=== PATIENT | female | born 1940 | race African-American/Black ===

== ENCOUNTER 2016-09-02 11:31 | Inpatient (IN) ==
[2016-09-02] MEDS ORDERED: DOCUSATE SODIUM 100 MG CAPSULE PO PRN (14:00)
[2016-09-02] MEDS ORDERED: ONDANSETRON 4 MG/2 ML VIAL IV PRN (14:00)
[2016-09-02] MEDS ORDERED: MORPHINE 2 MG/1 ML SYRINGE IV PRN (14:00)
[2016-09-02] MEDS ORDERED: ZALEPLON 5 MG CAPSULE PO PRN (14:00)
[2016-09-02] MEDS ORDERED: LACTULOSE 20 GM/30 ML UDCUP PO PRN (14:00)
[2016-09-02] MEDS ORDERED: ACETAMINOPHEN 325 MG TABLET PO PRN (14:00)
[2016-09-02 14:18] LABS: Basophils % 0.1 % (0.0-0.8); Hematocrit 36.7 VOL% (35.7-47.0); Hemoglobin 12.1 GM/DL (12.0-16.0); Immature Granulocytes % 0.4 %; Immature Granulocytes Absolute 0.06 #; Lymphocytes # 1.1 10*3/uL (1.4-4.0); Lymphocytes % 7.6 % (21.3-54.2); Mean Corpuscular Hemoglobin 29 PG (27-34); Mean Corpuscular Volume 88.4 FL (87-102); Mean Platelet Volume 10.6 FL (9.6-12.0); Monocytes # 0.9 10*3/uL (0.11-0.8); Monocytes % 5.9 % (1.7-12.7); Neutrophils # 12.8 10*3/uL (1.4-7.4); Platelet Count 149 T/CUMM (130-400); Red Blood Count 4.15 MC/CUMM (3.8-5.5); White Blood Count 14.9 T/CUMM (4-12)
[2016-09-02 14:42] LABS: Albumin 3.1 G/DL (3.4-5.0); Bilirubin,Total 0.9 MG/DL (0.2-1.0); Calcium 9.2 MG/DL (8.5-10.1); Magnesium 2.2 MG/DL (1.8-2.4); Osmolality,Calculated 281.3 MOS/KG (273-304); Potassium 3.6 MMOL/L (3.5-5.1); Risk Ratio 1.79; Total Protein 7.1 G/DL (6.4-8.3); VLDL CHOLESTEROL 14.8 MG/DL
[2016-09-02 15:41] LABS: Troponin I Only 0.397 NG/ML (0.00-0.045)
--- NOTE | 2016-09-02 16:06 | Hospitalist History & Physical ---
Assessment and Plan - Time spent with patient Time spent with patient: Greater than 30 minutes (due to assessment, plan and doc) (1) Confusion Status: Acute Assessment and plan: she will not speak to me, so therefore it is difficult to obtain a true evaluation of her mental status. I have ordered a UA to see if this could be a contributing factor to her confusion and leukocytosis. Current Visit: Yes (2) Elevated troponin Status: Acute Assessment and plan: Cardiology is seeing Current Visit: Yes (3) Hypertension Status: Acute Assessment and plan: continue home meds Current Visit: Yes (4) Leukocytosis Status: Acute Current Visit: Yes History of Present Illness Chief complaint: sent from [facility] for elevated troponin, SOB, refractory chf History of present illness: Ms. French is a 76 year old female who was sent to our facility from [facility] for CHF refractory to aggressive diuresis. She was also noted to have an elevated troponin with no EKG change. She was also noted to have some confusion per the physician at [facility]. CT negative on 09/01. ROS and HPI is very limited due to her being nonconversant. She is keeping her eyes closed and will not speak. Her Medications include singulair, hyzaar, norvasc, and tramadol. This morning at 0906, her troponin was noted to be 0.436. Upon arrival to telemetry today, she does give the nurses a history of a lumpectomy, but denies hx of breast ca. Her lungs are clear, and bowel sounds are normal. She does have some minimal edema to her bilateral lower extremities. Labs from our facility show : WBC 14.9, BNP 248, troponin 0.397. Creatinine is 1.10 with GFR 74. We will have Cardiology evaluate her elevated troponin and treat accordingly. She has recently relocated from [place] and does not have a PCP or other contacts. Further plan and addendum to follow by Dr. Leonor Pena. Home Medications Medication Instructions Recorded Confirmed Type Losartan/Hydrochlorothiazide 1 tablet PO DAILY 09/02/16 09/02/16 History [Hyzaar 100-25 Tablet] Montelukast Tab [Singulair Tab] 10 mg PO BEDTIME 09/02/16 09/02/16 History Tramadol HCl [Tramadol Tab] 50 mg PO BID PRN 09/02/16 09/02/16 History amLODIPine [Norvasc] 10 mg PO DAILY 09/02/16 09/02/16 History Allergies Allergy/AdvReac Type Severity Reaction Status Date / Time No Known Allergies Allergy Verified 09/02/16 14:09 Medical,Surgical,& Family Hx - Medical History Cardio: History of: Hypertension Endocrine: History of: Dyslipidemia - Surgical History Reproductive Surgeries: Surgical HX of;: Breast Surgery (tumor removed) - Social History Smoking Status: Current every day smoker Frequency of Alcohol Use: None Type of Drug Use: None Marital Status: Unknown Lives With:: Alone Functional capacity: independent ambulation ROS unobtainable: other (pt will not speak. ) Exam - Constitutional Vitals: Period Temp Pulse Resp BP Sys/Mcduffie Pulse Ox Last 24 Hr 97.9 F 68 18 149/75 96 General appearance: no acute distress, morbidly obese - Head Head exam: Present: normal inspection, normocephalic - Eye Eye exam: Present: EOMI. Absent: scleral icterus Pupils: Present: ISHAAN, normal accommodation - ENT ENT exam: Present: normal exam, normal oropharynx - Neck Neck exam: Present: normal inspection. Absent: lymphadenopathy - Respiratory Respiratory exam: Present: clear to auscultation bilaterally. Absent: accessory muscle use - Cardiovascular Cardiovascular exam: Present: regular rate and rhythm. Absent: carotid bruit - GI/Abdominal GI/Abdominal exam: Present: normal bowel sounds, soft. Absent: tenderness - Extremities Exam Extremities exam: Present: normal inspection, edema (minimal) - Back Exam Back exam: Present: normal inspection. Absent: muscle spasm - Neurological Exam Neurological exam: Present: alert, other (she will grunt to me at times, but acts as though she is asleep. She has conversed with other staff. ) - Skin Skin exam: Present: normal color, warm, dry, intact Results - Labs CBC & BMP: 09/02/16 14:13 09/02/16 14:13 Lab Results: I have reviewed the past 24 hour labs
[2016-09-02 16:31] LABS: Apearance,Urine CLEAR (Clear); Bacteria,Urine Occasional /HPF (Few); Bilirubin,Urine Negative (Negative); Blood, Urine Small mg/dL (Negative); Glucose,Urine (UA) Negative (Negative); Ketones,Urine Negative (Negative); Mucus,Urine Occasional /LPF (Occasional); Nitrite,Urine Negative (Negative); Protein,Urine Negative; RBC,Urine 1 /HPF (0-4); Squamous Epithelial Cell,Urine Occasional /HPF (0-10); Urine Color Yellow (Yellow); Urine Specific Gravity 1.012 (1.001-1.035); Urine Urobilinogen < 2.0 EU/DL (0.2-1.0); WBC,Urine 1 /HPF (0-6)
--- NOTE | 2016-09-02 17:23 | EKG Report ---
Stationary ECG Study [facility] Test Date: 09/02/2016 5:22:53 PM Pat Name: LOUIS LEE Department: Room: 273 Gender: F Specialty Cook: JOSE : 1940 Requested by: Juan M La Order Number: [id number] Reading MD: JUAN M LA Intervals [place] Rate: 72 P: 66 [place]: 169 QRS: 3 QRSD: 82 T: 27 QT: 393 QTc: 418 Interpretive Statements SINUS RHYTHM NONSPECIFIC T-WAVE ABNORMALITY Electronically Signed On 09-04-16 20:07:37 DETASSELER by JUAN M LA [email or web address]
--- NOTE | 2016-09-02 19:53 | Cardiology Consult Note ---
Indra Vale Lauren, RN, am scribing for, and in the presence of, Vijay La MD 19: 49. Assessment and Plan - Time spent with patient Time spent with patient: Less than 30 minutes (1) Elevated troponin Status: Acute Assessment and plan: 76 y/o BF c hx of HTN. Transferred to our facility from [facility] with confusion, leukocytosis, and elevated troponin. Prior CP. ECG w/o significant ischemic changes. -Elev trop. Get echo. Check ESR, CRP. If elevated, will need rheum workup. Endocarditis will also need to be ruled out. ischemia/acs less likely, will also need eval for this -HTN. Well controlled. Resume amlodipine, hctz/arb -Keep on telemetry Current Visit: Yes (2) Leukocytosis Status: Acute Current Visit: Yes (3) Hypertension Status: Acute Current Visit: Yes (4) Confusion Status: Acute Current Visit: Yes History of Present Illness - Data of Consult Patient: new to practice Consult date: 09/02/16 Requesting Physician: Yamel Nevarez - Consult Narrative Reason for consult: elevated troponin History of present illness: Ms. 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 She is originally from [place], [place] and has a primary care provider in her hometown. She is here visiting her aunt. We have no prior records to review. She is a poor historian. She did tell me she has a history of hypertension. She denies a history of diabetes, hyperlipidemia, obstructive sleep apnea, renal disease. She has risk factors significant for: hypertension, obesity, sedentary lifestyle, tobacco use. Her surgical history includes a right breast lumpectomy. Family history includes diabetes, hypertension, and cancer. According to records from [facility], she smokes daily. She was transferred to our facility with confusion, elevated white blood cell count, and elevated troponin. She tells me she has had a terrible headache for the last 2-3 days. She denies chest pain, shortness of breath, fever, chills, palpitations, dizziness, lightheadedness, syncope, diaphoresis. When questioned here, she denied nausea and vomiting but according to records from [facility], she presented with "vomiting all day." She denies constipation, diarrhea, melena, hematochezia, dysphagia, heartburn. She does report urinary frequency but denies odor, dysuria, or hematuria. At [facility], her troponin was 0.436. WBC on arrival was 14.9, creatinine 1.1, BNP 248. CXR at the outlying facility was unremarkable. CT brain was negative. She is a limited historian, quite stable somnolent. C/o bl ankle cramps. CC: Leonor Pena MD - Home Medications and Allergies Home Medications: Home Medications Medication Instructions Recorded Confirmed Type Losartan/Hydrochlorothiazide 1 tablet PO DAILY 09/02/16 09/02/16 History [Hyzaar 100-25 Tablet] Montelukast Tab [Singulair Tab] 10 mg PO BEDTIME 09/02/16 09/02/16 History Tramadol HCl [Tramadol Tab] 50 mg PO BID PRN 09/02/16 09/02/16 History amLODIPine [Norvasc] 10 mg PO DAILY 09/02/16 09/02/16 History Allergies/Adverse Reactions: Allergies Allergy/AdvReac Type Severity Reaction Status Date / Time No Known Allergies Allergy Verified 09/02/16 14:09 12 point system: reviewed and no additional remarkable complaints except as stated - Constitutional Constitutional: Present: daytime sleepiness, headache(s), lethargy, stops breathing during sleep. Absent: anorexia, chills, excessive sweating, fatigue, fever(s), frequent falls, increased appetite, malaise, night sweats, weakness, weight gain, weight loss - EENT Eyes: Absent: blurry vision, diplopia, loss of vision Ears: Absent: decreased hearing, ear discharge, ear pain Nose, mouth and throat: Present: headache(s). Absent: dysphagia, epistaxis, hoarseness, lip swelling, nasal congestion, neck mass, neck pain, sinus pressure , sore throat, throat swelling, tongue swelling, vertigo - Cardiovascular Cardiovascular: Present: edema (occasional pedal edema). Absent: chest pain at rest, chest pain with activity, claudication, diaphoresis, dyspnea, dyspnea on exertion, radiating jaw, neck or arm pain, lightheadedness, orthopnea, palpitations, PND - Respiratory Respiratory: Absent: cough, dyspnea, hemoptysis, dyspnea on exertion, wheezing, snoring, pain on inspiration - Gastrointestinal Gastrointestinal: Absent: abdominal pain, bloating, constipation, diarrhea, dysphagia, heartburn, hematemesis, hematochezia, loose stools, melena, nausea, vomiting - Genitourinary Genitourinary: Present: urinary frequency. Absent: difficulty urinating, dysuria, flank pain, hematuria, urinary hesitancy, urinary incontinence - Musculoskeletal Musculoskeletal: Absent: arthralgias, back pain, joint swelling, limited range of motion, muscle cramps, muscle weakness, myalgias - Neurological Neurological: Present: confusion, headache(s). Absent: abnormal gait, abnormal speech, behavioral changes, convulsions, disequilibrium, dizziness, focal weakness, frequent falls, memory loss, numbness, paresthesias, radicular pain, syncope, tremor(s) - Psychiatric Psychiatric: Present: confusion. Absent: anxiety, depression, memory loss, panic attacks - Endocrine Endocrine: Absent: cold intolerance, fatigue, heat intolerance, polydipsia, polyphagia - Hematologic/Lymphatic Hematologic/Lymphatic: Absent: easy bleeding, easy bruising, lymphadenopathy Medical,Surgical,& Family Hx - Medical History Cardio: History of: Hypertension Endocrine: History of: Dyslipidemia - Surgical History Reproductive Surgeries: Surgical HX of;: Breast Surgery (tumor removed) - Social History Smoking Status: Current every day smoker Frequency of Alcohol Use: None Type of Drug Use: None Physical Examination Vital Signs Temp Pulse Resp BP Pulse Ox 97.9 F 68 18 149/75 96 09/02/16 13:57 09/02/16 13:57 09/02/16 13:57 09/02/16 13:57 09/02/16 13:57 General: Present: No Apparent Distress HEENT: Present: Normocephaly, Mucus Membranes Moist Neck: Present: Supple Neck, Midline Trachea, No Masses, No Bruit Cardiac: Present: Reg Rate and Rhythm, No Murmur Lungs: Present: Normal Exam, Decreased Breath Sounds, No Wheeze, Rales, Rhonchi Neuro: Absent: Resting Tremor, Essential Tremor Abdomen: Present: Soft, Active Bowel Sounds, Non-Tender Skin: Present: Clear. Absent: Rash Musculoskeletal: Present: No Fluid Collection, No Pain, Normal Range of Motion Extremities: Present: No Clubbing, No Cyanosis, No Edema, Normal Upper Extr. Pulses, Normal Lower Extr. Pulses Result/EKG - Labs CBC & BMP: 09/02/16 14:13 09/02/16 14:13 Lab Results: I have reviewed the past 24 hour labs Labs: Laboratory Results - last 24 hr 09/02/16 09/02/16 09/02/16 14:13 14:13 14:13 WBC 14.9 H RBC 4.15 Hgb 12.1 Hct 36.7 MCV 88.4 MCH 29 MCHC 33.0 RDW 15.0 Plt Count 149 MPV 10.6 Neut % (Auto) 86.0 H Lymph % (Auto) 7.6 L [place] % (Auto) 5.9 Eos % (Auto) 0.0 Baso % (Auto) 0.1 Neut # (Auto) 12.8 H Lymph # (Auto) 1.1 L [place] # (Auto) 0.9 H Eos # (Auto) 0.0 Baso # (Auto) 0.0 Immature Gran % 0.4 Nucleated RBC % 0.0 Immature Gran # 0.06 Nucleated RBCs # 0.00 Sodium 141 Potassium 3.6 Chloride 104 Carbon Dioxide 27 Anion Gap 13.6 BUN 16 Creatinine 1.10 H GFR Calculation 74 BUN/Creatinine Ratio 14.00 Glucose 106 Calculated Osmolality 281.3 Calcium 9.2 Magnesium 2.2 Total Bilirubin 0.90 AST 34 ALT 42 Alkaline Phosphatase 104 B-Natriuretic Peptide 248 H Total Protein 7.1 Albumin 3.1 L Globulin 4.0 H Albumin/Globulin Ratio 0.7 L Triglycerides 74 Cholesterol 138 LDL Cholesterol 59.0 VLDL Cholesterol 14.8 HDL Cholesterol 77 H Heart Disease Risk Ratio 1.79 - EKG EKG results: interpreted by me, sinus rhythm EKG shows: tachycardia I, Vijay La MD, personally performed the services described in this documentation, ascribed by Natalia Burrell RN in my presence, and it is both accurate and complete [id number] .
[2016-09-02] MEDS: METOPROLOL TARTRATE 25 MG TABLET PO SCH (21:13)
[2016-09-02 22:33] LABS: Troponin I Only 0.518 NG/ML (0.00-0.045)
[2016-09-03 05:41] LABS: Troponin I Only 0.729 NG/ML (0.00-0.045)
--- NOTE | 2016-09-03 07:35 | EKG Report ---
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
[2016-09-03] MEDS: LOSARTAN/HCTZ 50-12.5 MG TABLET PO SCH (09:32)
[2016-09-03] MEDS: ASPIRIN EC 81 MG TABLET PO SCH (09:33)
[2016-09-03] MEDS: PANTOPRAZOLE 40 MG TABLET PO SCH (09:33)
[2016-09-03] MEDS: amLODIPine 5 MG TABLET PO SCH (09:33)
[2016-09-03] MEDS: METOPROLOL TARTRATE 25 MG TABLET PO SCH ×2 (09:33→20:47)
[2016-09-03] MEDS ORDERED: PROMETHAZINE 25 MG/1 ML VIAL IM ONE (10:33)
[2016-09-03] MEDS ORDERED: KETOROLAC 15 MG/1 ML VIAL IV ONE (10:33)
--- NOTE | 2016-09-03 10:38 | Hospitalist Progress Note ---
Assessment and Plan (1) Leukocytosis Status: Acute Assessment and plan: There was no repeat CBC today and therefore our repeated in the a.m. At this time there is no obvious signs of any type of infection. Current Visit: Yes (2) Elevated troponin Status: Acute Current Visit: Yes (3) Hypertension Status: Chronic Assessment and plan: Her preadmission medications of been restarted as argon tester on case will continue to monitor and if any adjustments will be needed will defer this to cardiology. Current Visit: Yes (4) Confusion Status: Resolved Assessment and plan: She does seem more alert today she had a breakfast she was up using the bedpan and now answering questions better than yesterday. We'll continue to monitor her nonspecific anti-inflammatory Morphis did come elevated. We'll go ahead and check an AMA along with rheumatoid panel and lupus panel if she could have some type of underlying rheumatological disease causing her symptoms. I'll also go ahead and start oral 20 mg of prednisone daily. Current Visit: Yes (5) Headache Status: Acute Assessment and plan: Her headache is mostly frontal she has no focal neurological deficits and a CT done yesterday was negative. Again, she may have some type of underlying vasculitis given she did have an elevated sedimentation rate and CRP. I will go ahead and start her on low-dose steroids as I have placed orders for a rheumatologic workup which consisting of ruling out lupus and possible rheumatoid arthritis. Current Visit: Yes Qualifiers: Headache type: unspecified Hospitalist: Subjective Interval history: Mrs. French is a 76-year-old -[place] female who is seriously from [place] was here in [place] visiting her sister where she gets sick and was initially transferred to [facility] in [facility]. There she presented with confusion elevated white blood cell count elevated troponin. She was transferred here for further evaluation and cardiology consult. She is a very poor historian. This morning she appears to be feeling better than she did yesterday however she still complains of this frontal headache. Cardiology did see her and was concerned about the possibility of some type of underlying rheumatological disease. Her sedimentation rate did return high at 100 with elevated CRP. She is much more alert today and states that she did have some chest pain on yesterday. Exam - Constitutional Vitals: Period Temp Pulse Resp BP Sys/Mcduffie Pulse Ox Last 24 Hr 97.1 F-99.6 F 58-74 18-20 126-165/61-75 92-99 General appearance: morbidly obese - Head Head exam: Present: normocephalic, atraumatic - Eye Eye exam: Present: EOMI Pupils: Present: ISHAAN - Neck Neck exam: Present: normal inspection - Respiratory Respiratory exam: Present: clear to auscultation bilaterally - Cardiovascular Cardiovascular exam: Present: regular rate and rhythm - GI/Abdominal GI/Abdominal exam: Present: normal bowel sounds, soft - Extremities Exam Extremities exam: Present: full ROM - Neurological Exam Neurological exam: Present: alert, oriented X3, normal gait, CN II-XII intact - Psychiatric Psychiatric exam: Present: flat affect - Skin Skin exam: Present: warm, intact Results - Labs CBC & BMP: 09/02/16 14:13 09/02/16 14:13
[2016-09-03] MEDS: predniSONE 20 MG TABLET PO SCH (13:03)
[2016-09-03] MEDS: SODIUM CHLORIDE 0.45% 1,000 ML IV SCH ×2 (14:19→23:15)
--- NOTE | 2016-09-03 17:49 | ECHO Report ---
Guerda French Exam Date: 09/03/2016 09:49 Referring Physician: Technologist: Ramona Lira RDCS Age: 76 Ht (in): Wt (lb): Gender: F Exam Location: [facility] Echo Indications: Essential (primary) hypertension, Elevated troponin, Leukocytosis, Confusion, Headaches, Nicotine dependence, cigarettes, uncomplicated, Edema, unspecified BP: / HR: Rhythm: Sinus Technical Quality: IMPRESSIONS Normal left ventricular cavity size. Mild concentric hypertrophy. Normal systolic function. Left ventricular ejection fraction is estimated at 60 %. Grade 1 diastolic dysfunction. Mildly dilated left atrium. No significant valvular abnormalities. MEASUREMENTS (Male / Female) Normal Values 2D ECHO LV Diastolic Diameter PLAX 4.9 cm 4.2 - 5.9 / 3.9 - 5.3 cm LV Systolic Diameter PLAX 2.6 cm LV Fractional Shortening PLAX 46.6 % IVS Diastolic Thickness 1.0 cm 0.6 - 1.0 / 0.6 - 0.9 cm LVPW Diastolic Thickness 1.1 cm 0.6 - 1.0 / 0.6 - 0.9 cm RV Internal Dim ED PLAX 2.3 cm Aortic Root Diameter 2.8 cm LA Systolic Diameter LX 4.1 cm 3.0 - 4.0 / 2.7 - 3.8 cm FINDINGS Left Ventricle Normal left ventricular cavity size. Mild concentric hypertrophy. Normal systolic function. Left ventricular ejection fraction is estimated at 60 %. Grade 1 diastolic dysfunction. Right Ventricle The right ventricle is normal in size and function. Right Atrium The right atrium is normal in size. Left Atrium Mildly dilated left atrium. Mitral Valve Morphologically normal mitral valve without significant stenosis or prolapse. There is no mitral regurgitation. Aortic Valve Morphologically normal aortic valve without significant sclerosis or stenosis. There is no aortic regurgitation. Tricuspid Valve Morphologically normal tricuspid valve without significant stenosis or regurgitation. Pulmonary artery systolic pressure cannot be estimated, due to lack of signal. Pulmonic Valve Morphologically normal pulmonic valve without significant stenosis. There is no pulmonic regurgitation. Pericardium Trace pericardial effusion. Aorta Normal ascending aorta dimension. Vijay La (Electronically Signed) Final Date: 03 September 2016 17:48
--- NOTE | 2016-09-03 17:57 | Cardiology Progress Note ---
Abhinav Vale Rachel, RN, am scribing for, and in the presence of, Vijay La MD 17:49. Assessment and Plan (1) Elevated troponin Status: Acute Assessment and plan: 76 y/o BF c hx of HTN. Transferred to our facility from [facility] with confusion, leukocytosis, and elevated troponin. Prior CP. ECG w/o significant ischemic changes. TTE: normal systolic function. Gr 1 diast dysfx, no PHTN. Trace peric eff. -Elev trop. This seems to be some myocarditic involvement due to a generalized inflammatory process, myositis. This did not cause significant cardiomyopathy. She seems to have some underlying mild hypertensive heart disease. No ACS. -BP, HR well controlled. -Rheum workup in progress -She is on IV fluids. So far, no evidence of significant rhabdomyolysis. She may tolerate IV fluids poorly, due to underlying diastolic dysfunction. Monitor carefully for volume overload/pulm congestion -No evidence of arrhythmia or hemodynamic instability. She maybe moved off telemetry. Current Visit: Yes (2) Leukocytosis Status: Acute Current Visit: Yes (3) Hypertension Status: Chronic Current Visit: Yes (4) Confusion Status: Resolved Current Visit: Yes Cardiology - PN: Subj Interval history: Mrs. French is lying in bed in no acute distress. She is currently not requiring any oxygen. She tells me that she feels much better today. She denies headache, chest pain, shortness of breath and palpitations. She tells me that she has been up out of bed walking around her room and has not experienced shortness of breath or chest pain. Her troponin continues to be high at 0.729 and 0660 today. Her rheumatoid factor was noted to be high at 5460, ESR high at 100 and CRP high at 12.8. Creatinine is slightly elevated at 1.1. EKG today does not reveal any acute findings. She is more awake and is responding adequately. Exam (Progress Note) - Constitutional Vitals: Period Temp Pulse Resp BP Sys/Mcduffie Pulse Ox Last 24 Hr 97.1 F-99.6 F 57-74 18-20 126-165/61-74 92-99 General appearance: no acute distress, morbidly obese - Head Head exam: Present: normal inspection, normocephalic, atraumatic - Respiratory Respiratory exam: Present: decreased breath sounds. Absent: accessory muscle use, rales, rhonchi, stridor, wheezes - Cardiovascular Cardiovascular exam: Present: regular rate and rhythm. Absent: bradycardia, carotid bruit, gallop, rubs, systolic murmur, tachycardia - GI/Abdominal GI/Abdominal exam: Present: normal bowel sounds, soft. Absent: mass, tenderness - Extremities Exam Extremities exam: Present: normal inspection, normal capillary refill. Absent: calf tenderness, edema - Neurological Exam Neurological exam: Present: alert, oriented X3 - Psychiatric Psychiatric exam: Present: normal affect, normal mood. Absent: agitated, anxious, depressed - Skin Skin exam: Present: normal color, warm, dry Result/EKG - Labs CBC & BMP: 09/02/16 14:13 09/02/16 14:13 Lab Results: I have reviewed the past 24 hour labs Labs: Laboratory Results - last 24 hr 09/02/16 09/02/16 09/02/16 14:13 14:13 14:13 ESR Westergren Sodium 141 Potassium 3.6 Chloride 104 Carbon Dioxide 27 Anion Gap 13.6 BUN 16 Creatinine 1.10 H GFR Calculation 74 BUN/Creatinine Ratio 14.00 Glucose 106 Calculated Osmolality 281.3 Calcium 9.2 Magnesium 2.2 Total Bilirubin 0.90 AST 34 ALT 42 Alkaline Phosphatase 104 Total Creatine Kinase 576 H CK-MB (CK-2) 4.9 H Troponin I 0.397 H C-Reactive Protein B-Natriuretic Peptide 248 H Total Protein 7.1 Albumin 3.1 L Globulin 4.0 H Albumin/Globulin Ratio 0.7 L Triglycerides 74 Cholesterol 138 LDL Cholesterol 59.0 VLDL Cholesterol 14.8 HDL Cholesterol 77 H Heart Disease Risk Ratio 1.79 Urine Color Urine Appearance Urine pH Ur Specific [place] Urine Protein Urine Glucose (UA) Urine Ketones Urine Blood Urine Nitrate Urine Bilirubin Urine Urobilinogen Urine Leukocytes Urine RBC Urine WBC Ur Squamous Epith Cells Urine Bacteria Urine Mucus Ur Culture Indicated? Rheumatoid Factor 09/02/16 09/02/16 09/03/16 16:20 21:32 04:11 ESR Westergren Sodium Potassium Chloride Carbon Dioxide Anion Gap BUN Creatinine GFR Calculation BUN/Creatinine Ratio Glucose Calculated Osmolality Calcium Magnesium Total Bilirubin AST ALT Alkaline Phosphatase Total Creatine Kinase 867 H D 1267 H D CK-MB (CK-2) 3.7 H 2.9 Troponin I 0.518 H D 0.729 H D C-Reactive Protein B-Natriuretic Peptide Total Protein Albumin Globulin Albumin/Globulin Ratio Triglycerides Cholesterol LDL Cholesterol VLDL Cholesterol HDL Cholesterol Heart Disease Risk Ratio Urine Color Yellow Urine Appearance Clear Urine pH 7.0 Ur Specific [place] 1.012 Urine Protein Negative Urine Glucose (UA) Negative Urine Ketones Negative Urine Blood Small Urine Nitrate Negative Urine Bilirubin Negative Urine Urobilinogen < 2.0 H Urine Leukocytes Negative Urine RBC 1 Urine WBC 1 Ur Squamous Epith Cells Occasional Urine Bacteria Occasional Urine Mucus Occasional Ur Culture Indicated? Not indicated Rheumatoid Factor 09/03/16 09/03/16 09/03/16 04:11 04:11 07:53 ESR Westergren 100 H Sodium Potassium Chloride Carbon Dioxide Anion Gap BUN Creatinine GFR Calculation BUN/Creatinine Ratio Glucose Calculated Osmolality Calcium Magnesium Total Bilirubin AST ALT Alkaline Phosphatase Total Creatine Kinase CK-MB (CK-2) Troponin I C-Reactive Protein 12.80 H 11.90 H B-Natriuretic Peptide Total Protein Albumin Globulin Albumin/Globulin Ratio Triglycerides Cholesterol LDL Cholesterol VLDL Cholesterol HDL Cholesterol Heart Disease Risk Ratio Urine Color Urine Appearance Urine pH Ur Specific [place] Urine Protein Urine Glucose (UA) Urine Ketones Urine Blood Urine Nitrate Urine Bilirubin Urine Urobilinogen Urine Leukocytes Urine RBC Urine WBC Ur Squamous Epith Cells Urine Bacteria Urine Mucus Ur Culture Indicated? Rheumatoid Factor 09/03/16 09/03/16 09:24 11:00 ESR Westergren Sodium Potassium Chloride Carbon Dioxide Anion Gap BUN Creatinine GFR Calculation BUN/Creatinine Ratio Glucose Calculated Osmolality Calcium Magnesium Total Bilirubin AST ALT Alkaline Phosphatase Total Creatine Kinase 1575 H D CK-MB (CK-2) 2.0 Troponin I 0.660 H C-Reactive Protein B-Natriuretic Peptide Total Protein Albumin Globulin Albumin/Globulin Ratio Triglycerides Cholesterol LDL Cholesterol VLDL Cholesterol HDL Cholesterol Heart Disease Risk Ratio Urine Color Urine Appearance Urine pH Ur Specific [place] Urine Protein Urine Glucose (UA) Urine Ketones Urine Blood Urine Nitrate Urine Bilirubin Urine Urobilinogen Urine Leukocytes Urine RBC Urine WBC Ur Squamous Epith Cells Urine Bacteria Urine Mucus Ur Culture Indicated? Rheumatoid Factor 5460 H - EKG EKG results: interpreted by me, sinus rhythm I, Vijay La MD, personally performed the services described in this documentation, ascribed by Iraida La RN in my presence, and it is both accurate and complete [id number] .
[2016-09-04] MEDS: PANTOPRAZOLE 40 MG TABLET PO SCH (08:48)
[2016-09-04] MEDS: predniSONE 20 MG TABLET PO SCH (08:48)
[2016-09-04] MEDS: amLODIPine 5 MG TABLET PO SCH (08:48)
[2016-09-04] MEDS: METOPROLOL TARTRATE 25 MG TABLET PO SCH (08:48)
[2016-09-04] MEDS: LOSARTAN/HCTZ 50-12.5 MG TABLET PO SCH (08:49)
[2016-09-04] MEDS: ASPIRIN EC 81 MG TABLET PO SCH (08:49)
[2016-09-04] MEDS: SODIUM CHLORIDE 0.45% 1,000 ML IV SCH (09:51)
--- NOTE | 2016-09-04 10:22 | Hospitalist Progress Note ---
Assessment and Plan (1) Leukocytosis Status: Acute Assessment and plan: There was no repeat CBC today and therefore our repeated in the a.m. At this time there is no obvious signs of any type of infection. Current Visit: Yes (2) Elevated troponin Status: Acute Assessment and plan: 09/04/16: She has been seen by cardiology her troponins trending now is increasing. She has been lying in bed a lot encouraged her to get around and sit up she. She is on normal saline repeat CK in the a.m. monitor for rhabdomyolysis. Current Visit: Yes (3) Hypertension Status: Chronic Assessment and plan: Her preadmission medications of been restarted as immunologist on case will continue to monitor and if any adjustments will be needed will defer this to cardiology. Current Visit: Yes (4) Confusion Status: Resolved Assessment and plan: She does seem more alert today she had a breakfast she was up using the bedpan and now answering questions better than yesterday. We'll continue to monitor her nonspecific anti-inflammatory Morphis did come elevated. We'll go ahead and check an AMA along with rheumatoid panel and lupus panel if she could have some type of underlying rheumatological disease causing her symptoms. I'll also go ahead and start oral 20 mg of prednisone daily. 09/04/16: Patient appears to be at her baseline she does answer questions appropriately again, I concerned that she could have some component of vasculitis giving her elevation in her inflammatory markers. She denies any joint aches or pain or swelling. She has never been diagnosed with any type of logical disorder. Current Visit: Yes (5) Headache Status: Resolved Assessment and plan: Her headache is mostly frontal she has no focal neurological deficits and a CT done yesterday was negative. Again, she may have some type of underlying vasculitis given she did have an elevated sedimentation rate and CRP. I will go ahead and start her on low-dose steroids as I have placed orders for a rheumatologic workup which consisting of ruling out lupus and possible rheumatoid arthritis. Current Visit: Yes Qualifiers: Headache type: unspecified Hospitalist: Subjective Interval history: Manolo is a 76-year-old female sitting apparently she was in his sister. It appears that she was developing a headache and some confusion CT acute findings. She was sent here with associated elevation of troponin. She's been followed by cardiology she also has a elevation of total CPK sedimentation rate and CRP. We are concerned that she has likely some type of neurological/ autoimmune disease. Patient is more alert than she was on admissions. She appears to be sad she states that she is ready to go home she is concerned about fatigue. She denies any significant past medical history she denies any significant joint pain or swelling. Main complaint was of a headache which is resolved. 12 Exam - Constitutional Vitals: Period Temp Pulse Resp BP Sys/Mcduffie Pulse Ox Last 24 Hr 97.9 F-99.6 F 55-75 16-21 119-136/62-75 90-96 General appearance: morbidly obese - Head Head exam: Present: normocephalic, atraumatic - Eye Eye exam: Present: EOMI Pupils: Present: ISHAAN - ENT ENT exam: Present: normal exam - Respiratory Respiratory exam: Present: clear to auscultation bilaterally - Cardiovascular Cardiovascular exam: Present: regular rate and rhythm - GI/Abdominal GI/Abdominal exam: Present: normal bowel sounds, soft - Extremities Exam Extremities exam: Present: full ROM - Neurological Exam Neurological exam: Present: alert, oriented X3, CN II-XII intact - Psychiatric Psychiatric exam: Present: flat affect - Skin Skin exam: Present: warm, intact Results - Labs CBC & BMP: 09/02/16 14:13 09/02/16 14:13
[2016-09-04 12:46] VITALS: BP 148/64
--- NOTE | 2016-09-04 13:41 | Cardiology Progress Note ---
Abhinav Vale Rachel, RN, am scribing for, and in the presence of, Vijay La MD 13:41. Assessment and Plan (1) Elevated troponin Status: Acute Assessment and plan: 09/02/16 76 y/o BF c hx of HTN. Transferred to our facility from [facility] with confusion, leukocytosis, and elevated troponin. Prior CP. ECG w/o significant ischemic changes. -Elev trop. This seems to be some myocarditic involvement due to a generalized inflammatory process, myositis. This did not cause significant cardiomyopathy. She seems to have some underlying mild hypertensive heart disease. No ACS. -BP, HR well controlled. -Rheum workup in progress -D/c IVF -No evidence of arrhythmia or hemodynamic instability. She maybe moved off telemetry. -con ASA, metoprolol -FU with PCP Current Visit: Yes (2) Leukocytosis Status: Acute Current Visit: Yes (3) Hypertension Status: Chronic Current Visit: Yes (4) Confusion Status: Resolved Current Visit: Yes Cardiology - PN: Subj Interval history: Patient is no longer confused and seems to be back to her baseline today. She feels well today and is without all cardiac complaints. She was seen lying in her bed without any acute distress. Rheum workup in progress. Her NGOZI is negative. Her rheumatoid factor was noted to be high at 5460, ESR high at 100 and CRP high at 12.8 yesterday. No labs to review today. She is in sinus rhythm with heart rates in the 60's without any over arrhythmias or ectopy noted. Exam (Progress Note) - Constitutional Vitals: Period Temp Pulse Resp BP Sys/Mcduffie Pulse Ox Last 24 Hr 98.0 F-99.6 F 55-75 16-21 119-136/62-75 90-96 General appearance: no acute distress, morbidly obese - Head Head exam: Present: normal inspection, normocephalic, atraumatic - Respiratory Respiratory exam: Present: clear to auscultation bilaterally, decreased breath sounds. Absent: accessory muscle use, chest wall tenderness, rales, rhonchi, stridor, wheezes - Cardiovascular Cardiovascular exam: Present: regular rate and rhythm. Absent: gallop, rubs, systolic murmur, tachycardia - GI/Abdominal GI/Abdominal exam: Present: normal bowel sounds, soft. Absent: distended, firm , mass, tenderness - Extremities Exam Extremities exam: Present: normal inspection, normal capillary refill. Absent: calf tenderness, edema - Neurological Exam Neurological exam: Present: alert, oriented X3 - Psychiatric Psychiatric exam: Present: normal affect, normal mood - Skin Skin exam: Present: normal color, warm, dry Result/EKG - Labs CBC & BMP: 09/02/16 14:13 09/02/16 14:13 Lab Results: I have reviewed the past 24 hour labs Labs: Laboratory Results - last 24 hr 09/03/16 09/03/16 09/04/16 11:00 11:00 04:28 Total Creatine Kinase 1785 H Rheumatoid Factor 5460 H NGOZI Screen Negative (<1:160) - EKG EKG results: interpreted by me, sinus rhythm IAbhinav Attila, MD, personally performed the services described in this documentation, ascribed by Iraida La RN in my presence, and it is both accurate and complete [id number] .
--- NOTE | 2016-09-04 14:13 | Discharge Summary ---
Hospital Course - Hospital Course Hospital Course: Ms. French is a 76-year-old female with history of hypertension was transferred here from [facility] she was in [facility] visiting her sick aunt and sister. Evidently she developed some confusion and was complaining of headache. There she was found to have elevated cardiac enzymes and transferred here for further cardiac evaluation. She did have elevation in her troponin along with CK-MB and total CK. Here her main complaint was a was of headache. She was admitted to telemetry floor with serial cardiac enzymes that were mildly elevated. Her CK continue to trend upward. We did obtain a cardiology consultation and he felt because of her negative EKG changes and the history that she likely has some type of vasculitis with likely underlying rheumatological inflammatory process going on and possibility of myositis. Her blood pressure was not that well controlled we did add a beta clement and aspirin to her regimen. I did begin to workup to rule out underlying autoimmune disease and she did have an elevated rheumatoid factor along with sedimentation rate and CRP. I also ordered specific tests for lupus and rheumatoid arthritis which these panels have yet to return. I empirically started her on low-dose prednisone 20 mg and it appears that she has responded as she does not have a headache and her confusion has now resolved. Patient is very anxious to get back to her family in [place], [place]. Clinically she is stable to be discharged. I have instructed her that once we get complete workup we will notify her to leave. Telephone number so that we can get in contact. Her plans are to eventually return to [place] where she will follow-up with her primary care physician and have instructed her that she will likely need a rheumatology consult once she gets back. She is what she understands this and is in agreement with current medical management. She will resume her preadmission medications with the addition of Toprol, aspirin and prednisone. I also explained to her the importance of taking the steroids stating that she could not just abruptly stopped them as they have to be tapered when she's been on for long-term. Also the importance of a follow-up to establish a specific medical diagnosis Diagnosis - Discharge Diagnosis (1) Leukocytosis Status: Acute (2) Elevated troponin Status: Acute (3) Hypertension Status: Chronic (4) Confusion Status: Resolved (5) Headache Status: Resolved Discharge Plan - Discharge Data Disposition: Disch To Home/Self Care Condition at Discharge: Stable Discharge Diet: diabetic diet, low salt diet Activity: resume usual activities as tolerated Contact your physician if you experience:: fever over 101, Shortness of breath - Discharge Medications New Aspirin EC Tab 81 mg PO DAILY #0 tablet Metoprolol Tartrate Tab [Lopressor Tab] 12.5 mg PO BID #30 tablet predniSONE TAB [PredniSONE] 10 mg PO DAILY #30 tablet Continue amLODIPine [Norvasc] 10 mg PO DAILY Losartan/Hydrochlorothiazide [Hyzaar 100-25 Tablet] 1 tablet PO DAILY Montelukast Tab [Singulair Tab] 10 mg PO BEDTIME Tramadol HCl [Tramadol Tab] 50 mg PO BID PRN PRN Reason: Pain - Follow Up or Referral - Forms/Instructions Additional Discharge Instructions: will need to see your PCP and a Services Tech. also need to check your blood glucose (sugar) levels to monitor while on the steroids. You cannot just stop the prendnisone if you take for more than 5 days you have to be tapered off. Exam - Constitutional Vitals: Period Temp Pulse Resp BP Sys/Mcduffie Pulse Ox Last 24 Hr 97.5 F-99.6 F 49-75 16-21 119-148/62-75 90-96 General appearance: morbidly obese - Head Head exam: Present: normocephalic, atraumatic - Eye Eye exam: Present: EOMI Pupils: Present: ISHAAN - ENT ENT exam: Present: normal exam - Respiratory Respiratory exam: Present: clear to auscultation bilaterally - Cardiovascular Cardiovascular exam: Present: regular rate and rhythm - GI/Abdominal GI/Abdominal exam: Present: normal bowel sounds, soft - Extremities Exam Extremities exam: Present: full ROM - Neurological Exam Neurological exam: Present: alert, oriented X3, normal gait, CN II-XII intact - Psychiatric Psychiatric exam: Present: normal affect, normal mood - Skin Skin exam: Present: warm, intact Discharge Results Procedures and tests throughout hospitalization: Pending Orders 09/03/16 11:00 Cyclic Citrull Peptide Ab Stat Lupus Anticoag Prof Routine 09/05/16 04:00 Basic Metabolic Panel w/Mg IN AM Comp Blood Count Auto Diff IN AM Creatine Kinase Total IN AM Labs on day of discharge: Labs from last 24 hours 09/04/16 09/03/16 04:28 11:00 Total Creatine Kinase 1785 H NGOZI Screen Negative (<1:160) DS: Provider Date of admission: 09/02/16 13:31 Primary care physician: . No PCP Attending physician on admission: Leonor Pena MD Consults: 09/02/16 14:00 Consult to Physician [CONS] Routine Comment: Consulting Provider: Consult to Physician [CONS] Routine Comment: elevated troponin Consulting Provider: Vijay La 09/02/16 15:10 Consult to Pharmacy [CONS] Routine Reason for Pharmacy Consult: Adjust Meds Renal Funct Discharging clinician: Leonor Pena MD Expected date of discharge: 09/04/16
[2016-09-05 12:46] LABS: INR 1.3
== END 2016-09-04 17:00 | disposition home or self-care (01) | DRG 546 ==
LOC: N.TELES 13:31
PROVIDERS: ADMIT Family Medicine; ATTEND Family Medicine